=== PATIENT | male | born 1940 | race Caucasian/White ===

== ENCOUNTER 2017-07-06 12:30 | Day surgery (SDC) | payer OTHER, MEDICARE ==
--- NOTE | 2017-07-04 13:39 | EKG ---
Test Date: 2017-07-04 Test Time: 11:43:41 Component Technician: SADAF MEASUREMENT RESULTS: Intervals: Rate: 61 NM: 168 QRSD: 98 QT: 398 QTc: 400 [place]: P: 60 NM: 168 QRS: 15 T: 64 INTERPRETIVE STATEMENTS: Normal sinus rhythm with sinus arrhythmia Normal ECG Compared to ECG 06/02/2005 18:25:15 Atrial premature complex(es) no longer present Electronically Signed On 07-04-17 13:38:19 CDT by Chip Orozco
--- OUTSIDE RECORDS SUMMARY | 2017-07-06 12:32 | XMS REPORT | Clinical Summary ---
:1940 Author Organization [facility] Address [address] [place] [address] Care Team Providers Name Role Phone Asked, No Pcp Primary Care Provider Unavailable Allergies Active Allergy Reactions Severity Noted Date Comments Codeine Other (See Comments) High 02/11/2016 SEVERE HEADACHE Current Medications Prescription Sig. Disp. Refills Start Date End Date Status verapamil sustained release Take 240 mg by Active (CALAN-SR) 240 MG SR tablet mouth nightly. lisinopril (PRINIVIL,ZESTRIL) Take 10 mg by Active 10 MG tablet mouth daily. rivaroxaban (XARELTO) tablet Take 15 mg by Active mouth. simvastatin (ZOCOR) 40 MG Take 40 mg by Active tablet mouth nightly. hydrochlorothiazide Take 25 mg by Active (HYDRODIURIL) 25 MG tablet mouth daily. omega-3 fatty acids-vitamin E Take by mouth 2 Active (FISH OIL) 1,000 mg capsule (two) times a day. multivitamin with minerals Take 1 tablet Active tablet by mouth daily. docusate sodium (COLACE) 100 Take 100 mg by Active MG capsule mouth 2 (two) times a day. cetirizine (ZyrTEC) 10 MG Take 10 mg by Active tablet mouth daily. Active Problems Not on file Encounters Date Type Specialty Care Team Description 09/12/2016 Hospital Encounter Radiology Rafa, Uric acid nephrolithiasis MD Keith 09/12/2016 Transcribe Orders Access Rogers Craig acid nephrolenid Parker MD (Primary Dx) after 07/05/2016 Social History Tobacco Use Types Packs/Day Years Used Date Never Assessed Sex Assigned at Date Recorded Not on file Last Filed Vital Signs Not on file Plan of Treatment Health Maintenance Due Date Last Done Comments ZOSTER VACCINE 1998 PNEUMOCOCCAL POLYSACCHARIDE VACCINE AGE 65 AND OVER 2003 PNEUMOCOCCAL-13 2003 INFLUENZA VACCINE 10/31/2017 Results XR Kub Kidney Ureter Bladder (09/12/2016 10:45 AM) Specimen Performing Laboratory [facility] [address] [place] [address] Narrative EXAMINATION:XR KUB KIDNEY URETER BLADDER CLINICAL HISTORY:N20.0 Calculus of kidney, N20.0 COMPARISON:12/29/2015 IMPRESSION: 1.There are surgical clips in the right upper quadrant. Gas-filled loops of large and small bowel are present. Findings are compatible with an ileus pattern. Surgical clips are seen in the pelvis. Suspicious osseous lesion is not seen. A couple very subtle tiny radiopacities overlie the right abdomen and may be renal stones but are nonspecific. [facility]-[id number] Procedure Note Interface, Radiology Results Incoming - 09/12/2016 10:53 AM CDT EXAMINATION: XR KUB KIDNEY URETER BLADDER CLINICAL HISTORY: N20.0 Calculus of kidney, N20.0 COMPARISON: 12/29/2015 IMPRESSION: 1. There are surgical clips in the right upper quadrant. Gas-filled loops of large and small bowel are present. Findings are compatible with an ileus pattern. Surgical clips are seen in the pelvis. Suspicious osseous lesion is not seen. A couple very subtle tiny radiopacities overlie the right abdomen and may be renal stones but are nonspecific. [facility]-[id number] after 07/05/2016 Insurance Payer Benefit Plan / Group Subscriber ID Type Phone Address AARP AARP SUPPLEMENT xxxxxxxxx Commercial MEDICARE MEDICARE PART A AND B xxxxxxxxxx Medicare [place], [place]
[2017-07-06] MEDS: OXYMETAZOLINE HCL 0.05% 30ML NAS ONE ×3 (12:46→14:51)
[2017-07-06] MEDS ORDERED: OXYMETAZOLINE HCL 0.05% 30ML NAS ONE ×3 (12:51→14:33)
[2017-07-06] MEDS: Ringers Lactate 1,000 ML IV ONE ×2 (13:04→14:49)
[2017-07-06] MEDS ORDERED: PROPOFOL 200 MG/20 ML VIAL IV ONE (14:17)
[2017-07-06] MEDS ORDERED: MIDAZOLAM HCL 2 MG/2 ML INJ ONE (14:17)
[2017-07-06] MEDS ORDERED: FENTANYL CITR 100 MCG/2 ML ONE ×2 (14:18→15:46)
[2017-07-06] MEDS ORDERED: ROCURONIUM 50 MG/5 ML VIAL IV ONE (14:18)
[2017-07-06] MEDS ORDERED: LIDOCAINE 2% MPF 5 ML VIAL ONE ×2 (14:18→15:03)
[2017-07-06] MEDS: LIDOCAINE 1% W/EPI 1:100,000 MDV 50 ML VIAL ONE ×2 (14:25→14:51)
[2017-07-06] MEDS ORDERED: SUCCINYLCHOLINE 20 MG/ML (10 ML) IV ONE (15:14)
[2017-07-06] MEDS ORDERED: ONDANSETRON 4 MG/2 ML VIAL ONE (15:58)
--- NOTE | 2017-07-06 18:05 | P.BOP ---
Preoperative diagnosis: CRS Postoperative diagnosis: CRSwNP Primary procedure: balloon dilation B frontal, sphenoid and max sinuses Secondary procedure: B polypectomy Worm Raiser: NONE,NONE Estimated blood loss: 50ml Specimen: B nasal polyps, frontal sinus (culture) Anesthesia: General Complications: None Implants: R Xerogel Transferred to: Recovery Room Condition: Good
--- NOTE | 2017-07-07 07:40 | OP ---
Date of Procedure: 07/06/2017 Surgeon: Gayathri Ness MD Preoperative Diagnosis: Chronic sinusitis. Postoperative Diagnosis: Chronic sinusitis with nasal polyps. Indication For Procedure: Willian Elizondo is a 77-year-old man who presented with symptoms and clinica l and radiographic findings consistent with chronic sinusitis. The risks, benefits, and alternatives to surgery were discussed with the patient. He had significant concern regarding formal functional endoscopic sinus surgery, but was amenable to balloon sinuplasty. Due to the patient's use of chroni c blood thinners, the procedure was recommended to be performed in the operating room. Description Of Procedure: The patient was brought to the operating room. He was placed under genera l anesthesia via oral endotracheal tube. The head of bed was turned 90 degrees and the patient's nos e was packed with Afrin-soaked pledgets. The nasal hairs were trimmed. The entellus balloon device was prepared in accordance with veneer jointer operator's directions for use. The balloon was tested and its in tegrity was confirmed. The Afrin-soaked pledgets were removed and a 0-degree endoscope was used to p erform a nasal endoscopy. There was moderate polyposis in the middle meatus bilaterally. On the rig ht side, there was moderate polyposis in the sphenoethmoid recess. The balloon device was configured for frontal sinus dilation under 0-degree endoscope visualization. The tip of the instrument was pa ssed just posterior to the uncinate process and advanced easily into the right frontal recess. The p lacement was confirmed by strong illumination of the right frontal sinus. The balloon device was adv anced over the guidewire and inflated to its full extent. The balloon was then retracted and the rig ht frontal sinus was forcefully irrigated with 60 cc of sterile saline resulting in large glob of thi ck mucus being flushed from the frontal sinus. A similar procedure was performed on the left side. The large piece of thick mucopurulent debris from the left sinus was sent as a culture specimen and t he Entellus device was reconfigured to a straighter orientation for dilation of the sphenoid sinus. On the right side, the sphenoethmoid recess was occluded by a large polyp. A straight and 45-degree Blakesley was used with a 0-degree endoscope to perform a polypectomy and the polyps were sent for pa thologic evaluation. Removal of these polyps allowed visualization of the sphenoethmoid recess and t he tip of the Entellus balloon device was advanced into this space. The face of the sphenoid was gen tly palpated until the natural os was identified. The tip of the device was placed through the natur al os and the balloon was advanced over the guidewire and inflated for several seconds. The guidewir e was left and the balloon was retracted. The guidewire was then used to forcefully irrigate the rig ht sphenoid sinus with 60 cc of sterile saline. During irrigation, thick mucopurulent secretions wer e eluded from the sphenoid. A similar procedure was performed along the left side; however, no polyp ectomy was required from the sphenoethmoid recess. The nasopharynx and nasal cavity were thoroughly suctioned and the balloon device was reconfigured for dilation of the maxillary sinus. The left maxi llary sinus was dilated by advancing the balloon device and carefully placing it around the uncinate process. The placement was confirmed by strong illumination of the maxillary sinus. The balloon was advanced over the device, inflated, then deflated, and retracted, and the maxillary sinus was irriga erin with 60 cc of sterile saline. Polyps within the middle meatus were then grasped with a straight Blakesley under 0-degree endoscopic guidance and several moderate to large sized polyps were removed in order to open the nasal airway. An attention was turned to the right side. The right middle meat us had several moderate-sized polyps, but the edge of the uncinate was easily visible. The balloon d evice was passed around the uncinate and the maxillary infundibulum was dilated with the balloon and the right maxillary sinus was forcefully irrigated with 60 cc of sterile saline resulting in thick mu copurulent secretions being flushed from the sinus. After suctioning, a straight and 45-degree Tim sley was used to perform a polypectomy with removal of several sizable polyps. While attempting to g rasp polyps along the base of the ethmoid bulla, the ethmoid bulla was entered and a small amount of polyp and bony tissue were removed from the right anterior ethmoid region. Due to the patient's josé miguel re to avoid formal assess, the ethmoid was not formally dissected. Afrin-soaked pledgets were placed within the right middle meatus for several minutes to aid in hemostasis. Additional Afrin-soaked pl edgets were placed within the bilateral nasal cavities and the left middle meatus and left in place f or several minutes. After removal of all the pledgets, the right ethmoid was oozing mildly and a dis solvable Xeroform nasal dressing was placed within the right anterior ethmoid region and saturated wi th sterile saline. Re-examination including suctioning of the nasal cavity and nasopharynx reveals g ood hemostasis and the patient was returned to care of Anesthesia for awakening and extubation in the operating room. Disposition: The patient will be discharged home later today in the care of his family and follow up with Dr. Ness in 10-14 days for postoperative evaluation. SARIKA Voice ID: [id number] Report ID: [id number]
== END 2017-07-06 17:20 | disposition home or self-care (01) ==
LOC: OR 12:30
PROVIDERS: ATTEND Otolaryngology
PROC: 09BW8ZX Excision of Right Sphenoid Sinus, Via Natural or Artificial Opening Endoscopic, Diagnostic (ICD-10-PCS; 2017-07-06)
PROC: 09BQ8ZX Excision of Right Maxillary Sinus, Via Natural or Artificial Opening Endoscopic, Diagnostic (ICD-10-PCS; 2017-07-06)
PROC: 09BR8ZX Excision of Left Maxillary Sinus, Via Natural or Artificial Opening Endoscopic, Diagnostic (ICD-10-PCS; principal; 2017-07-06 14:15)
DX: J32.4 Chronic pansinusitis (principal); I10 Essential (primary) hypertension; I48.91 Unspecified atrial fibrillation; Z87.891 Personal history of nicotine dependence; Z79.82 Long term (current) use of aspirin; Z79.01 Long term (current) use of anticoagulants; Z88.6 Allergy status to analgesic agent; Z90.49 Acquired absence of other specified parts of digestive tract; Z82.49 Family history of ischemic heart disease and other diseases of the circulatory system; Z80.9 Family history of malignant neoplasm, unspecified
CPT/HCPCS: 31295; 31298; 87070; 87077; 87186; 88304; 88312; 93005; J0330; J2405; J3010 ×2; 88305; J2250